=== PATIENT | female | born 1980 | race Caucasian/White ===

== ENCOUNTER 2020-05-21 19:59 | Inpatient (IN) | payer MEDICAID, OTHER ==
[~2020-05-21] VITALS: Ht 177.8 cm; Wt 99.8 kg
[2020-05-21 12:45] VITALS: BP 138/74
[~2020-05-21 19:59] MED LIST: METH10TA80 PO
--- NOTE | 2020-05-21 20:35 | NUR ---
CALLED FOR TRIAGE NO RESPONSE
[2020-05-21] MEDS ORDERED: ONDANSETRON HCL/PF 4 MG/2 ML VIAL IVP ONE (21:30)
[2020-05-21] MEDS ORDERED: HYDROMORPHONE INJ 2 MG/ML DISP.SYRIN IV ONE (21:30)
[2020-05-21] MEDS ORDERED: ONDANSETRON HCL/PF 4 MG/2 ML VIAL ONE ×2 (21:32→22:55)
[2020-05-21] MEDS ORDERED: HYDROMORPHONE 1 MG/1 ML DISP.SYRIN ONE ×2 (21:33→22:56)
[2020-05-21 21:45] LABS: APPEARANCE,URINE SL CLOUDY (CLEAR); BILIRUBIN,URINE SMALL (NEGATIVE); BLOOD, URINE SMALL Ery/uL (NEGATIVE); COLOR,URINE YELLOW (YELLOW); KETONES,URINE NEGATIVE (NEGATIVE); LEUKOCYTE ESTERASE ,URINE NEGATIVE (NEGATIVE); NITRITE, URINE NEGATIVE (NEGATIVE); PH,URINE 6.5 (5.0-8.0); PROTEIN,URINE TRACE mg/dl (NEGATIVE); UGLUCOSE NEGATIVE (NEGATIVE)
[2020-05-21 21:51] LABS: BASOPHILS % (AUTO) 1.9 % (0.0-2.0); EOSINOPHILS % (AUTO) 2.5 % (0.0-6.0); HEMATOCRIT 32 % (33-45); HEMOGLOBIN 10.7 g/dL (11.5-14.8); LYMPHOCYTES # (AUTO) 0.5 /CMM (0.8-4.8); LYMPHOCYTES % (AUTO) 35.1 % (20.0-44.0); MEAN CORPUSCULAR HGB CONC 33 g/dl (31.0-36.0); MEAN CORPUSCULAR VOLUME 90 fL (82-100); MONOCYTES # (AUTO) 0.2 /CMM (0.1-1.30); MONOCYTES % (AUTO) 14.6 % (2.0-12.0); NEUTROPHILS # (AUTO) 0.6 /CMM (1.8-8.9); NEUTROPHILS % (AUTO) 45.9 % (43.0-81.0)
[2020-05-21 21:54] LABS: BACTERIA,URINE 1+ /HPF (None Seen)
--- NOTE | 2020-05-21 21:58 | NUR ---
PT AAOX. AMBULATORY WITH STEADY GAIT. BIBSELF C/O BL EDEMA AND BH EDEMA SINCE FEBRUARY. PT SEEN AT [facility] 2 DAYS AGO. PLACED IN BED 3 ON MONITOR AND PULSE OX. PA AT BEDSIDE FOR EVAL. AWAITING PA FOR EVAL AND ORDERS. VSS.
[2020-05-21 22:05] LABS: PLATELET COUNT (AUTO) 39 /CMM (150-450); WHITE BLOOD COUNT (AUTO) 1.3 K/uL (4.3-11.0)
--- NOTE | 2020-05-21 22:07 | NUR ---
NEW PRODUCT TRAINER AT BEDSIDE FOR LABS
[2020-05-21 22:18] LABS: ALBUMIN 2.7 g/dL (3.4-5.0); BILIRUBIN,DIRECT 0.4 mg/dL (0.0-0.2); BILIRUBIN,TOTAL 1.3 mg/dL (0.2-1.0); CALCIUM, SERUM 8.3 mg/dL (8.5-10.1); CREATININE 0.9 mg/dL (0.6-1.3); POTASSIUM 3.4 mmol/L (3.5-5.1); TOTAL PROTEIN, SERUM 6.5 g/dL (6.4-8.2)
[2020-05-21 22:20] LABS: EOSINOPHILS % (MANUAL) 1 % (0-4); LYMPHOCYTES % (MANUAL) 43 % (16-48); MONOCYTES % (MANUAL) 11 % (0-11.0); NEUTROPHILS % (MANUAL) 44 (42-76)
--- NOTE | 2020-05-21 22:21 | NUR ---
PA AT BEDSIDE SPEAKING TO PT REGARDING BEING ADMITTED.
--- NOTE | 2020-05-21 22:24 | NUR ---
COVID SWAB SENT TO LAB
--- NOTE | 2020-05-21 22:42 | NUR ---
Patient is resting comfortably in bed. Easily aroused. VSS.
[2020-05-21] MEDS ORDERED: HYDROMORPHONE 1 MG/1 ML DISP.SYRIN IV ONE (23:00)
[2020-05-21] MEDS ORDERED: ONDANSETRON HCL/PF 4 MG/2 ML VIAL IV ONE (23:00)
--- NOTE | 2020-05-21 23:27 | NUR ---
LAB CALLED REGARDING NEGATIVE COVID RESULT.
--- NOTE | 2020-05-21 23:30 | NUR ---
DR. MANRIQUEZ PAGED PER ER ORDER.
--- NOTE | 2020-05-21 23:35 | NUR ---
BERRY GILLESPIE TALKING TO DR. MANRIQUEZ REGARDING HOSPITAL ADMISSION.
--- NOTE | 2020-05-21 23:43 | NUR ---
NURSING AURICULAR ACUPUNCTURIST CALLED FOR TELE BED.
--- NOTE | 2020-05-21 23:49 | NUR ---
TELE 312-2
--- NOTE | 2020-05-21 23:57 | NUR ---
REPORT GIVEN TO WILDER ASENCIO
--- NOTE | 2020-05-22 00:43 | NUR ---
PT WAS TRANSFERRED TO 312 UNDER ACLS
[2020-05-22] MEDS ORDERED: ACETAMINOPHEN 325 MG TABLET PO PRN (01:00)
[2020-05-22] MEDS ORDERED: MAGNESIUM HYDROXIDE 30 ML UDC PO PRN (01:00)
[2020-05-22] MEDS ORDERED: POTASSIUM CHLORIDE 20 MEQ TAB.PRT.SR PO ONE (01:00)
[2020-05-22] MEDS ORDERED: MAG HYDROX/AL HYDROX/SIMETH 30 ML UDC PO PRN (01:00)
[2020-05-22] MEDS ORDERED: Z GUARD REMEDY 2 OZ OINT TP PRN (01:00)
[2020-05-22] MEDS ORDERED: ONDANSETRON HCL/PF 4 MG/2 ML VIAL IVP PRN (01:00)
[2020-05-22] MEDS ORDERED: ZOLPIDEM TARTRATE 5 MG TABLET PO PRN (01:00)
--- NOTE | 2020-05-22 01:10 | NUR ---
ARMED SECURITY PROFESSIONAL ADMITTING NOTES ADMITTED PATIENT FROM ER, TRANSPORTED VIA GURNEY. INITIAL PHYSICAL ASSESSMENT AND ADMISSION PROCESS INITIATED. NOTED SKIN CONDITION, VARIED MULTIPLE SKIN DISCOLORATION. NOTED WITH BILATERAL UPPER AND BILATERAL LOWER EXTREMITIES SWELLING. PERIPHERAL IV ACCESS ON HER LEFT HAND GAUGE #20 SL. ALL NEEDS ATTENDED. CONNECTED TO TELE MONITOR READS SINUS RHYTHM. WILL CONTINUE TO MONITOR ACCORDINGLY.
[2020-05-22 02:24] VITALS: BP 138/74
[2020-05-22] MEDS: oxyCODONE/APAP (5/325 MG) 1 UDTAB TABLET PO PRN ×2 (03:49→19:47)
[2020-05-22 04:00] VITALS: BP 138/74
[2020-05-22] MEDS ORDERED: SPIR25TA6 PO (04:55)
[2020-05-22] MEDS ORDERED: VIT1TABL66 PO (04:55)
[2020-05-22] MEDS ORDERED: OXYC-133 PO (04:55)
[2020-05-22] MEDS ORDERED: FURO-144 PO (04:55)
--- NOTE | 2020-05-22 07:23 | NUR ---
RN NOTES RECEIVED PATIENT IN BED RESTING COMFORTABLY IN MODERATE HIGH BACK REST. A/O X4. ON RA, NO SIGNS OF DISTRESS NOTED AT THIS TIME. IV ACCESS ON LEFT HAND #20, PATENT AND INTACT. SAFETY MEASURES IN PLACE, BED IN LOWEST LOCKED POSITION WITH SIDE RAILS UP X2. CALL LIGHT WITHIN REACH. WILL CONTINUE TO MONITOR.
--- NOTE | 2020-05-22 07:27 | NUR ---
DIE CASTING MACHINE SETTER NOTES ALL NEEDS ATTENDED AND MET, ABLE TO REST AND SLEPT WITH SHORT INTERVALS. FOR PARACENTESIS TODAY, PROCEDURE CONSENT DONE. PERCOCET GIVEN AT 0349AM FOR COMPLAINTS OF SEVERE GENERALIZED PAIN. PATIENT IS INSISTING OF WANTING TO EAT AND DRINK WATER. ENDORSED TO AM NURSE FOR CONTINUITY OF CARE.
[2020-05-22 07:31] LABS: BASOPHILS % (AUTO) 0.8 % (0.0-2.0); EOSINOPHILS % (AUTO) 3.4 % (0.0-6.0); HEMATOCRIT 28 % (33-45); HEMOGLOBIN 9.3 g/dL (11.5-14.8); LYMPHOCYTES # (AUTO) 0.3 /CMM (0.8-4.8); LYMPHOCYTES % (AUTO) 40.5 % (20.0-44.0); MEAN CORPUSCULAR HGB CONC 33 g/dl (31.0-36.0); MEAN CORPUSCULAR VOLUME 90 fL (82-100); MONOCYTES # (AUTO) 0.1 /CMM (0.1-1.30); MONOCYTES % (AUTO) 15.2 % (2.0-12.0); NEUTROPHILS # (AUTO) 0.3 /CMM (1.8-8.9); NEUTROPHILS % (AUTO) 40.1 % (43.0-81.0); RED BLOOD CELL COUNT(AUTO) 3.14 MIL/uL (4.0-5.2)
[2020-05-22 07:52] LABS: CALCIUM, SERUM 8.1 mg/dL (8.5-10.1); CREATININE 0.8 mg/dL (0.6-1.3); MAGNESIUM 1.8 mg/dL (1.8-2.4); PHOSPHORUS 3.1 mg/dL (2.5-4.9); POTASSIUM 3.1 mmol/L (3.5-5.1)
[2020-05-22 08:00] VITALS: BP 115/48
[2020-05-22 08:18] LABS: PLATELET COUNT (AUTO) 33 /CMM (150-450); WHITE BLOOD COUNT (AUTO) 0.8 K/uL (4.3-11.0)
[2020-05-22] MEDS ORDERED: HYDROMORPHONE 1 MG/1 ML DISP.SYRIN IV ONE (08:30)
[2020-05-22] MEDS: METHIMAZOLE (5MG) 5 MG TABLET PO SCH (08:48)
[2020-05-22] MEDS: SPIRONOLACTONE 25 MG TABLET PO SCH ×2 (08:48→20:58)
[2020-05-22 09:28] LABS: BAND % (MANUAL) 2 % (0.0-5.0); LYMPHOCYTES % (MANUAL) 44 % (16-48); NEUTROPHILS % (MANUAL) 40 (42-76)
[2020-05-22 09:29] LABS: EOSINOPHILS % (MANUAL) 3 % (0-4); MONOCYTES % (MANUAL) 11 % (0-11.0)
[2020-05-22] MEDS: POTASSIUM CHLORIDE 20 MEQ TAB.PRT.SR PO SCH ×2 (10:18→11:29)
[2020-05-22] MEDS: HYDROMORPHONE 1 MG/1 ML DISP.SYRIN IV PRN ×3 (11:29→22:22)
[2020-05-22 16:00] VITALS: BP 112/49
--- NOTE | 2020-05-22 18:36 | NUR ---
RN NOTES PATIENT IN BED RESTING COMFORTABLY IN MODERATE HIGH BACK REST. A/O X4. ON RA, NO SIGNS OF DISTRESS NOTED THROUGHOUT THE SHIFT. IV ACCESS ON LEFT HAND #20, PATENT AND INTACT. SAFETY MEASURES IN PLACE, BED IN LOWEST LOCKED POSITION WITH SIDE RAILS UP X2. CALL LIGHT WITHIN REACH. WILL ENDORSE TO ROAD TRAFFIC CONTROLLER NURSE FOR RADHA.
--- NOTE | 2020-05-22 19:23 | NUR ---
MS RN NOTES RECEIVED PATIENT IN BED RESTING COMFORTABLY IN MODERATE HIGH BACK REST. ALERT ORIENTEDX4. ON ROOM AIR NO SIGNS OF ACUTE RESPIRATORY OR CARDIAC DISTRESS NOTED IV ACCESS ON LEFT HAND #20, PATENT AND INTACT. SAFETY MEASURES IN PLACE, BED IN LOWEST LOCKED POSITION WITH SIDE RAILS UP X2. CALL LIGHT WITHIN EASY REACH. ALL NEEDS ANTICIPATED, WILL CONTINUE TO MONITOR ACCORDINGLY.
[2020-05-22 20:01] VITALS: BP 108/53
[2020-05-22] MEDS: CEFTRIAXONE 1 G in IV D5W 50 ML IV SCH (20:58)
[2020-05-23] MEDS: HYDROMORPHONE 1 MG/1 ML DISP.SYRIN IV PRN ×5 (04:48→21:49)
--- NOTE | 2020-05-23 06:04 | NUR ---
MS RN NOTES ALL NEEDS ATTENDED AND MET, PATIENT IN BED RESTING COMFORTABLY IN MODERATE HIGH BACK REST. ALERT ORIENTEDX4. ON ROOM AIR NO SIGNS OF ACUTE RESPIRATORY OR CARDIAC DISTRESS NOTED IV ACCESS ON LEFT HAND #20, PATENT AND INTACT. PAIN IS TOLERABLE AT THIS TIME, SAFETY MEASURES IN PLACE, BED IN LOWEST LOCKED POSITION WITH SIDE RAILS UP X2. CALL LIGHT WITHIN EASY REACH. ALL NEEDS ANTICIPATED, WILL ENDORSE TO AM NURSE FOR CONTINUITY OF CARE.
[2020-05-23 08:00] VITALS: BP 124/76
[2020-05-23 08:00] LABS: CALCIUM, SERUM 8.3 mg/dL (8.5-10.1); CREATININE 0.7 mg/dL (0.6-1.3); POTASSIUM 3.8 mmol/L (3.5-5.1)
[2020-05-23] MEDS: oxyCODONE/APAP (5/325 MG) 1 UDTAB TABLET PO PRN (08:03)
[2020-05-23 08:14] LABS: THYROID STIMULATING HORMONE 0.433 uIU/mL (0.358-3.74)
[2020-05-23] MEDS: SPIRONOLACTONE 25 MG TABLET PO SCH ×2 (09:00→09:14)
[2020-05-23] MEDS: FOLIC ACID 1 MG TABLET PO SCH (09:22)
[2020-05-23] MEDS: METHIMAZOLE (5MG) 5 MG TABLET PO SCH (09:22)
--- NOTE | 2020-05-23 12:20 | NUR ---
RN NOTES SEEN AND EXAMINED BY ANTONI WARD WITH ORDERS TO INCREASE DILAUDID TO 1MG Q4H IV AND FOR MIDLINE INSERTION, ORDERS MADE AND CARRIED OUT. WILL CONTINUE TO MONITOR.
[2020-05-23 16:00] VITALS: BP 116/75
--- NOTE | 2020-05-23 18:38 | NUR ---
RN NOTES PATIENT IN BED RESTING COMFORTABLY IN MODERATE HIGH BACK REST. A/O X4. ON RA, NO SIGNS OF DISTRESS NOTED THROUGHOUT THE SHIFT. IV ACCESS ON LEFT FA #20, PATENT AND INTACT. SAFETY MEASURES IN PLACE, BED IN LOWEST LOCKED POSITION WITH SIDE RAILS UP X2. CALL LIGHT WITHIN REACH. WILL ENDORSE TO MEDIA PRODUCTION SUPPORT MANAGER NURSE FOR RADHA.
--- NOTE | 2020-05-23 19:32 | NUR ---
MS RN OPEN NOTES PATIENT IS LAYING IN BED. ON RA, NO SOB/ ACUTE RESPIRATORY DISTRESS NOTED. NO COMPLAINTS OF PAIN AT THE MOMENT. BED IS IN LOWEST LOCKED POSITION WITH SIDE RAILS UP X3, SEMI FOWLERS. CALL LIGHT IS WITHIN REACH. WILL CONTINUE TO MONITOR.
[2020-05-23 20:00] VITALS: BP 100/57
[2020-05-23] MEDS: CEFTRIAXONE 1 G in IV D5W 50 ML IV SCH (20:10)
[2020-05-23 20:20] VITALS: BP 100/57
[2020-05-24] MEDS: HYDROMORPHONE 1 MG/1 ML DISP.SYRIN IV PRN ×6 (01:32→23:04)
[2020-05-24 06:22] LABS: BASOPHILS % (AUTO) 0.8 % (0.0-2.0); HEMATOCRIT 30 % (33-45); HEMOGLOBIN 9.8 g/dL (11.5-14.8); LYMPHOCYTES # (AUTO) 0.4 /CMM (0.8-4.8); MEAN CORPUSCULAR HGB CONC 33 g/dl (31.0-36.0); MEAN CORPUSCULAR VOLUME 90 fL (82-100); MONOCYTES # (AUTO) 0.2 /CMM (0.1-1.30); NEUTROPHILS # (AUTO) 0.6 /CMM (1.8-8.9); NEUTROPHILS % (AUTO) 49.2 % (43.0-81.0); RED BLOOD CELL COUNT(AUTO) 3.29 MIL/uL (4.0-5.2)
--- NOTE | 2020-05-24 06:23 | NUR ---
MS RN CLOSE NOTES PATIENT IS LAYING IN BED. A/O X4. ON RA, NO SOB/ ACUTE RESPIRATORY DISTRESS NOTED. IV IN RIGHT FOREARM #22G IS PATENT AND INTACT. APPEARS COMFORTABLE/ NO COMPLAINTS OF PAIN AT THE MOMENT. PATIENT IS ABLE TO AMBULATE. BED IS IN LOWEST LOCKED POSITION WITH SIDE RAILS UP X2, SEMI FOWLERS. PATIENT KEPT NPO. CALL LIGHT IS WITHIN REACH. WILL ENDORSE TO AM NURSE.
[2020-05-24 06:51] LABS: PLATELET COUNT (AUTO) 36 /CMM (150-450); WHITE BLOOD COUNT (AUTO) 1.3 K/uL (4.3-11.0)
[2020-05-24 07:08] LABS: ALBUMIN 2.5 g/dL (3.4-5.0); CALCIUM, SERUM 8.3 mg/dL (8.5-10.1); CREATININE 0.7 mg/dL (0.6-1.3); POTASSIUM 4.1 mmol/L (3.5-5.1); TOTAL PROTEIN, SERUM 6.2 g/dL (6.4-8.2)
--- NOTE | 2020-05-24 07:48 | NUR ---
RN OPENING NOTE Patient is resting in bed, A/O x4, showing no signs of acute distress or SOB, stable on RA. IV line in the RFA#22g is clean and intact s/l. Midline insertion pending, order is in place, will f/u with RN beater room supervisor. Patient is ambulatory and independent with care. Bed is in lowest position, side rails x3 in upright position, call light is within reach, fall safety and aspiration precautions enforced. Will continue with plan of care.
[2020-05-24 07:56] VITALS: BP 122/72
[2020-05-24 08:12] LABS: C-REACTIVE PROTEIN, QUANT <1 mg/L (0-10); IMMUNOGLOBULIN A, SERUM 196 mg/dL (87-352); IMMUNOGLOBULIN G, SERUM 1833 mg/dL (586-1602); IMMUNOGLOBULIN M, SERUM 186 mg/dL (26-217)
[2020-05-24 08:15] VITALS: BP 122/72
[2020-05-24] MEDS: SPIRONOLACTONE 25 MG TABLET PO SCH (08:43)
[2020-05-24] MEDS: FOLIC ACID 1 MG TABLET PO SCH (08:43)
[2020-05-24] MEDS: METHIMAZOLE (5MG) 5 MG TABLET PO SCH (08:44)
[2020-05-24 09:32] LABS: EOSINOPHILS % (MANUAL) 3 % (0-4); LYMPHOCYTES % (MANUAL) 23 % (16-48); MONOCYTES % (MANUAL) 15 % (0-11.0); NEUTROPHILS % (MANUAL) 59 (42-76)
--- NOTE | 2020-05-24 10:21 | NUR ---
RN NOTE Notified RN Electroformer that patient has had midline order since yesterday but no midline inserted. RN Supp called curb and gutter laborer and they inserted RFA #20g, flushing well. No midline per RN Supp.
--- NOTE | 2020-05-24 10:28 | NUR ---
RN NOTE Per [facility], to inform MD that paracentesis is not indicated due to no fluid collection in abdomen. Dr. Blanco made aware of results and per MD, cancel platelet transfusion and paracentesis. Ok per Dr. Blanco for patient to start eating. Kary Rodriguez made aware.
[2020-05-24] MEDS: oxyCODONE/APAP (5/325 MG) 1 UDTAB TABLET PO PRN ×2 (10:45→20:09)
--- NOTE | 2020-05-24 12:53 | NUR ---
RN NOTE Ok per N.P. to put one time order Dilauded 1mg IVP now.
[2020-05-24] MEDS ORDERED: HYDROMORPHONE 1 MG/1 ML DISP.SYRIN IV ONE (13:00)
[2020-05-24] MEDS ORDERED: HYDROMORPHONE INJ 0.5 MG/0.5 ML SYRINGE IV ONE (13:00)
[2020-05-24 15:07] LABS: *ANA ANTI-CENTROMERE B AB <0.2 AI (0.0-0.9); *ANA ANTI-DNA(DS) AB, QN <1 IU/mL (0-9); *ANA ANTI-JO-1 <0.2 AI (0.0-0.9); *ANA ANTICHROMATIN ANTIBODY <0.2 AI (0.0-0.9); *ANA RNP ANTIBODIES 1.3 AI (0.0-0.9); *ANA SJOGREN'S ANTI-SS-A <0.2 AI (0.0-0.9); *ANA SJOGREN'S ANTI-SS-B <0.2 AI (0.0-0.9); *ANAANTI-SCLERODERMA-70 AB <0.2 AI (0.0-0.9); *ANASMITH AB <0.2 AI (0.0-0.9); *SPE A/G RATIO 0.9 (0.7-1.7); *SPE ALBUMIN 2.6 g/dL (2.9-4.4); *SPE ALPHA-1-GLOBULIN 0.1 g/dL (0.0-0.4); *SPE ALPHA-2-GLOBULIN 0.4 g/dL (0.4-1.0); *SPE BETA GLOBULIN 0.6 g/dL (0.7-1.3); *SPE M-SPIKE Not Observed g/dL (Not Observed); *SPEGAMMA GLOBULIN 1.9 g/dL (0.4-1.8)
[2020-05-24 16:00] VITALS: BP 118/68
--- NOTE | 2020-05-24 18:09 | NUR ---
RN CLOSING NOTE Patient is resting in bed, A/O x4, showing no signs of acute distress or SOB, stable on RA. IV line in the RFA#22g is clean and intact s/l; RFA #20g is clean and intact. Patient is ambulatory and independent with care. All patient needs met, all due medications given. Bed is in lowest position, side rails x3 in upright position, call light is within reach, fall safety and aspiration precautions enforced. Will endorse to payer specialist.
--- NOTE | 2020-05-24 19:10 | NUR ---
ms rn notes received pt in bed awake and able to make needs known. pt a/o x3. respirations even and unlabored with no s/s of acute distress or sob noted. pt noted with IV line in the RFA#22g and RFA #20g is clean and intact. Patient is ambulatory and independent with care. Bed is in lowest position, side rails x2 call light is within reach, Will continue to monitor.
[2020-05-24] MEDS: CEFTRIAXONE 1 G in IV D5W 50 ML IV SCH (20:13)
[2020-05-24 20:45] VITALS: BP 151/72
[2020-05-25] MEDS: HYDROMORPHONE 1 MG/1 ML DISP.SYRIN IV PRN ×3 (03:25→13:32)
--- NOTE | 2020-05-25 07:36 | NUR ---
ms rn notes pt in bed awake and able to make needs known. pt a/o x3. respirations even and unlabored with no s/s of acute distress or sob noted throughout shift. pt noted with IV line in jeana #22g patent and intact and sl. Bed is in lowest position, side rails x2 call light is within reach, Will endorse to oncoming nurse for kat.
--- NOTE | 2020-05-25 08:01 | NUR ---
MS RN OPENING NOTES PATIENT IS AWAKE A/O X 4. NO SIGNS OF DISTRESS IN ROOM AIR. IV R UA#22G INTACT. NO COMPLAIN OF PAIN OR DISCOMFORT AT THIS MOMENT. SAFETY MEASURES ARE BEING APPLIED, BED IS IN LOW POSITION SIDE RAILS UP X 2 FOR SAFETY. CALL LIGHT WITHIN REACH. WILL CONTINUE TO MONITOR.
[2020-05-25] MEDS: FOLIC ACID 1 MG TABLET PO SCH (08:14)
[2020-05-25] MEDS: SPIRONOLACTONE 25 MG TABLET PO SCH (08:14)
[2020-05-25 08:23] VITALS: BP 126/64
[2020-05-25] MEDS: METHIMAZOLE (5MG) 5 MG TABLET PO SCH (08:23)
[2020-05-25] MEDS: oxyCODONE/APAP (5/325 MG) 1 UDTAB TABLET PO PRN (11:16)
[2020-05-25] MEDS ORDERED: Folic Acid PO (13:15)
[2020-05-25] MEDS ORDERED: CEPH-570 PO (13:15)
--- NOTE | 2020-05-25 15:13 | NUR ---
DISCHARGE NOTES PATIENT VITAL SIGNS ARE STABLE, PATIENT HAS NO COMPLAINTS OF PAIN AND HAS NO SIGNS OF SOB AND NO SIGNS OF DISTRESS. PATIENT DISCHARGE INSTRUCTIONS WERE EXPLAINED VERBALLY, TO CONTINUE WITH PRESCRIBED MEDICATIONS, FOLLOW UP WITH PRIMARY CARE PHYSICIAN FOLLOW UP WITH SAUSAGE GRINDER AND ONCOLOGIST AND RETURN TO THE ER INCASE OF AN EMERGENCY. SHE VERBALLY READ INSTRUCTIONS BACK. IV'S WERE REMOVED WITH NO SIGNS OF BLEEDING AND COVERED. BELONGING LIST WAS COMPLETED AND SIGNED. DISCHARGE PICTURES WERE TAKEN. LEFT THE HOSPITAL VIA WHEELCHAIR BY ME TO THE LOBBY AND BEING PICKED UP BY A PRIVATE CAR.
== END 2020-05-25 15:10 | disposition home or self-care (01) ==
LOC: ER 20:04 → TELE 23:51 → MED 05-22 09:52
PROVIDERS: ADMIT Nurse Practitioner Acute Care; ATTEND Nurse Practitioner Acute Care
DX: K74.60 Unspecified cirrhosis of liver (principal); K72.90 Hepatic failure, unspecified without coma; I11.0 Hypertensive heart disease with heart failure; I50.9 Heart failure, unspecified; D61.818 Other pancytopenia; I42.9 Cardiomyopathy, unspecified; E03.9 Hypothyroidism, unspecified; B19.20 Unspecified viral hepatitis C without hepatic coma; N39.0 Urinary tract infection, site not specified; D69.6 Thrombocytopenia, unspecified; Z98.890 Other specified postprocedural states; R18.8 Other ascites; Z88.8 Allergy status to other drugs, medicaments and biological substances; Z91.040 Latex allergy status; F17.200 Nicotine dependence, unspecified, uncomplicated; Z68.31 Body mass index [BMI] 31.0-31.9, adult; E66.01 Morbid (severe) obesity due to excess calories; D64.9 Anemia, unspecified
CPT/HCPCS: 36415; 71045-TC; 76700-TC; 80048-TC; 80053-TC; 80061-TC; 80076-TC; 81000-TC; 82140-TC; 82728-TC; 82784; 83540-TC; 83605-TC; 83615-TC; 83735-TC; 84100-TC; 84155; 84165; 84439-TC; 84443-TC; 84703-TC; 85025-TC; 85730-TC; 86140; 86225; 86235; 86334; 86431-TC; 86850-TC; 87081-TC; 93307-TC; 93970-TC; 97110-TC; 97116-TC; 97530-TC; 97535-TC; C9803-CS; G0378; J0696; J1170; J2405; J7050; J7060

== ENCOUNTER 2020-08-30 23:11 | Emergency (ER) | payer OTHER ==
[~2020-08-30] VITALS: Ht 177.8 cm; Wt 99.8 kg
[~2020-08-30 23:11] MED LIST changes: +CEPH-570 PO; +Folic Acid PO; +VIT1TABL66 PO
--- NOTE | 2020-08-31 00:45 | NUR ---
PATIENT CAME TO ER BED 13 C/O RIGHT LOWER BACK PAIN RADIATING TO THE UPPER PELVIC REGION FOR A FEW DAYS. PATIENT STATES, "I THINK I HAVE UTI." PATIENT IS AAOX4. NO SOB. BREATHING EVENLY AND UNLABORED ON ROOM AIR. CONNECTED TO THE MONITOR.
--- NOTE | 2020-08-31 00:54 | NUR ---
PATIENT UNABLE TO PROVIDE URINE AT THIS TIME, NOTIFIED.
[2020-08-31] MEDS ORDERED: ONDANSETRON HCL/PF 4 MG/2 ML VIAL ONE (01:04)
[2020-08-31 01:07] LABS: BASOPHILS % (AUTO) 0.7 % (0.0-2.0); EOSINOPHILS % (AUTO) 2.3 % (0.0-6.0); HEMATOCRIT 41 % (33-45); LYMPHOCYTES % (AUTO) 24.9 % (20.0-44.0); MEAN CORPUSCULAR HGB CONC 32 g/dl (31.0-36.0); MEAN CORPUSCULAR VOLUME 88 fL (82-100); MONOCYTES # (AUTO) 0.3 /CMM (0.1-1.30); MONOCYTES % (AUTO) 8.9 % (2.0-12.0); NEUTROPHILS # (AUTO) 2.5 /CMM (1.8-8.9); NEUTROPHILS % (AUTO) 63.2 % (43.0-81.0); PLATELET COUNT (AUTO) 65 /CMM (150-450); RED BLOOD CELL COUNT(AUTO) 4.62 MIL/uL (4.0-5.2); WHITE BLOOD COUNT (AUTO) 3.9 K/uL (4.3-11.0)
[2020-08-31 01:20] LABS: CALCIUM, SERUM 8.7 mg/dL (8.5-10.1); CREATININE 0.6 mg/dL (0.6-1.3); POTASSIUM 3.8 mmol/L (3.5-5.1)
--- NOTE | 2020-08-31 01:23 | NUR ---
PATIENT TAKEN TO CT.
[2020-08-31 01:25] LABS: ALBUMIN 3.3 g/dL (3.4-5.0); BILIRUBIN,DIRECT 0.3 mg/dL (0.0-0.2); BILIRUBIN,TOTAL 1.2 mg/dL (0.2-1.0); TOTAL PROTEIN, SERUM 8.3 g/dL (6.4-8.2)
[2020-08-31] MEDS: ONDANSETRON HCL/PF 4 MG/2 ML VIAL IVP ONE (01:27)
[2020-08-31] MEDS: IV NS 0.9% 1,000 ML BAG IV ONE (01:28)
[2020-08-31 02:01] LABS: BILIRUBIN,URINE Negative (NEGATIVE); BLOOD, URINE Small Ery/uL (NEGATIVE); COLOR,URINE YELLOW (YELLOW); LEUKOCYTE ESTERASE ,URINE Negative (NEGATIVE); NITRITE, URINE Negative (NEGATIVE); PROTEIN,URINE Negative (NEGATIVE); UGLUCOSE Negative (NEGATIVE); UROBILINOGEN,URINE 0.2 EU/dL (0.2)
[2020-08-31] MEDS ORDERED: HYDROCODONE/APAP 5/325MG TABLET ONE (02:01)
[2020-08-31] MEDS: HYDROCODONE/APAP 5/325MG TABLET PO ONE (02:13)
--- NOTE | 2020-08-31 02:26 | NUR ---
Patient discharged to home in stable condition. Written and verbal after care instructions given. Patient verbalizes understanding of instruction.
--- NOTE | 2020-08-31 02:26 | NUR ---
IV removed. Catheter intact and site benign. Pressure and 4x4 applied to site. No bleeding noted.
[2020-08-31 02:35] VITALS: BP 132/75
[2020-08-31 03:55] LABS: SQUAMOUS EPITHELIAL CELL,UR Moderate /HPF (None Seen); WBC,URINE 0-2 /HPF (0-3)
== END 2020-08-31 02:36 | disposition home or self-care (01) ==
LOC: ER 23:16
DX: G89.29 Other chronic pain (principal); K74.69 Other cirrhosis of liver; I11.0 Hypertensive heart disease with heart failure; I50.9 Heart failure, unspecified; E03.9 Hypothyroidism, unspecified; Z98.890 Other specified postprocedural states; Z88.8 Allergy status to other drugs, medicaments and biological substances; Z88.6 Allergy status to analgesic agent; Z91.040 Latex allergy status; Z79.899 Other long term (current) drug therapy
CPT/HCPCS: 36415; 74176; 80048; 80076; 81001; 82140; 83690; 85025; 96361; 96374; 99284; J2405; J7030

== ENCOUNTER 2022-05-17 03:03 | Emergency (ER) | payer OTHER ==
[~2022-05-17] VITALS: Ht 180.3 cm; Wt 99.8 kg
--- NOTE | 2022-05-17 03:27 | NUR ---
SHIRA. ASSISTED FROM THE CAR. TO ER BED 4. NOT IN RESP DISTRESS. BROUGHT IN FOR SYNCOPAL EPISODES X 4 SINCE 0200. PT SMELLS OF ALCOHOL AND ADMITS TO DRINKING. MD WAS AT THE BEDSIDE FOR EVAL.
--- NOTE | 2022-05-17 03:31 | NUR ---
Patient does not wish to proceed with medical care recommended by Neda King. Patient given information related to possible complications, up to and including , which could occur as a result of leaving the hospital at this time. Patient verbalizes understanding of risks involved due to leaving against medical advice. Patient has signed AMA form.
[2022-05-17 03:32] VITALS: BP 129/83
== END 2022-05-17 03:33 | disposition home or self-care (01) ==
LOC: ER 03:16
DX: R55 Syncope and collapse (principal); Z76.5 Malingerer [conscious simulation]; Z53.29 Procedure and treatment not carried out because of patient's decision for other reasons; I50.9 Heart failure, unspecified; E03.9 Hypothyroidism, unspecified; Z88.6 Allergy status to analgesic agent; Z88.8 Allergy status to other drugs, medicaments and biological substances; Z91.040 Latex allergy status
CPT/HCPCS: 82962-TC